=== PATIENT | male | born 1980 ===

== ENCOUNTER 2017-07-07 13:51 | Day surgery (SDC) | payer BC ==
[~2017-07-07] VITALS: Ht 172.7 cm; Wt 71.2 kg
[2017-07-07 13:51] VITALS: Ht 172.7 cm; Wt 71.2 kg
[2017-07-07] MEDS ORDERED: IRON PO (13:53)
[2017-07-07] MEDS ORDERED: MESA0.372 PO (13:53)
[2017-07-07 15:22] VITALS: BP 118/77; PULSE 66; RESP 15
[2017-07-07] MEDS ORDERED: PROPOFOL 20 ML ONE ×2 (15:35→16:13)
--- NOTE | 2017-07-07 16:20 | OPPN ---
Date/Time of Note Date/Time of Note DATE: 07/07/17 TIME: 16:16 Proc Note GI Procedure Date 07/07/17 Indication: other (History of inflammatory bowel disease) Pre-procedure Diagnosis History of IBD Post-procedure Diagnosis Impression: Normal colonic mucosa to cecum. Random biopsies obtained right and left colon. Questionable areas of denudation in the ileum. Rule out ileitis. Biopsies obtained Moderate-sized internal hemorrhoids No evidence of potential fistula from rectum Plan: Follow up as scheduled] High fiber diet Annual hemoccult stool testing [Review pathology] [Surveillance colonoscopy in 5 years] Obtain CT enterography Obtain IBD serology . Procedure Performed: Colonoscopy (With biopsies. Enteroscopy with biopsies) Surgeon NAYLA BERNSTEIN MD See signature line Outside Sales Inspector none Anesthesia Type: MAC Anesthesiologist: MARIELY MCBRIDE MD Tourniquet Time none EBL none Transfusion required none Biopsy 1: Terminal ileum/rule out ileitis Biopsy 2: Right side of the colon Biopsy 3: Left side of the colon Grafts/Implants none Tubes/Drains none Complication(s) none Disposition: home Procedure Description After informed consent, with the patient/relatives understanding the procedure, its indications and potential risks and complications, including but not limited to: Allergic reaction, bleeding, perforation, infection, and after all pertinent questions were answered to the patient's satisfaction, the patient/ relatives signed the witnessed informed consent. Following this, premedication was administered slowly IV push under careful cardiovascular and respiratory monitoring with pulse OX[employer], automatic blood pressure, and property assessment monitor. Once the sedative effect was achieved, the patient was placed in the left lateral decubitus position, digital rectal examination was performed. The colonoscope was then introduced and advanced under visual control throughout all segments of the colon including: the rectum, sigmoid, descending colon, splenic flexure, transverse colon, hepatic flexure, ascending colon and finally reaching the cecum which was clearly identified by transillumination, finger indentation and the ileocecal valve. The terminal ileum was examined approximately 20 cm. Careful examination of the mucosa of the lower gastrointestinal tract both on insertion as well as withdrawal of the instrument disclosed the following findings: PREPARATION QUALITY: [Adequate], RECTAL EXAM: The anorectal area was visualized examined and digital rectal examination performed with the following findings: No evidence of perirectal disease, no masses. COLONIC MUCOSA: The mucosa of all segments of the colon and terminal ileum was carefully examined and showed the following findings: the colonic examined mucosa appears within normal limits. There is no evidence of inflammatory changes, diverticular formation, polyps or other neoplasms, vascular malformation, or any other abnormality. Random biopsies were obtained of the right and left side of the colon. The ileum shows a few areas with apparent granulation but otherwise the villous architecture appears intact and healthy. Biopsies were obtained The instrument was then withdrawn, the patient tolerated the procedure well and was transferred out of the Endoscopy Suite awake and in good condition to continue recovery under observation. Copies To: CC: NAYLA BERNSTEIN MD, MORDO MD Jul 07, 2017 16:20
[2017-07-07 16:43] VITALS: BP 101/61; PULSE 71
== END 2017-07-07 16:56 | disposition home or self-care (01) ==
LOC: GIL 13:51
PROVIDERS: ATTEND Internal Medicine Gastroenterology
DX: K64.8 Other hemorrhoids (principal); Z88.0 Allergy status to penicillin